=== PATIENT | female | born 1980 | race Caucasian/White ===

== ENCOUNTER → 2021-01-01 | Day surgery (SDC) | payer OTHER ==
[~2021-01-01] MED LIST: COLESTID1 GM PO; DICLOFENAC SOD100 G1 PO; IBUPROFEN800 M1 PO; PRILOSEC20 MG PO; SPIRONOLACTONE25 M1 PO; TRILEPTAL300 MG PO; WELLBUTRIN75 MG PO
[2021-01-01 09:28] LABS: HCG (URINE) SCREEN NEGATIVE (NEGATIVE)
[2021-01-01 10:12] LABS: BUN/CREAT RATIO (CALC) 20.3 RATIO; CREATININE 0.69 mg/dL (0.51-0.95); POTASSIUM 4.2 mmol/L (3.5-5.1)
== END | disposition home or self-care (01) ==
LOC: FAS 08:47
PROVIDERS: Obstetrics & Gynecology
DX: T83.32XA Displacement of intrauterine contraceptive device, initial encounter (principal); N93.9 Abnormal uterine and vaginal bleeding, unspecified; N71.1 Chronic inflammatory disease of uterus; K21.9 Gastro-esophageal reflux disease without esophagitis; E66.9 Obesity, unspecified; F32.9 Major depressive disorder, single episode, unspecified; X58.XXXA Exposure to other specified factors, initial encounter
CPT/HCPCS: 36415; 80048; 84703; 93005; J2250; J2405; J2704; J3010; J7120; J7298